=== PATIENT | female | born 1950 | race Caucasian/White ===

== ENCOUNTER 2017-08-16 04:09 | Observation (INO) | payer OTHER, BC ==
[~2017-08-16] VITALS: Ht 162.6 cm; Wt 73.5 kg
[~2017-08-16 04:09] MED LIST: CELEXA20 MG PO; COZAAR100 MG PO; CRESTOR10 MG PO; WELLBUTRIN XL150 MG PO; XANAX0.25 MG PO
[2017-08-16 04:37] LABS: ALBUMIN 4.1 g/dL (3.2-4.8); CHLORIDE 104 mEq/L (99-109); POTASSIUM 3.8 mEq/L (3.7-5.4); SODIUM 139 mEq/L (136-147)
[2017-08-16 04:39] LABS: GLUCOSE 119 mg/dL (70-99); TOTAL PROTEIN 7.1 g/dL (6.4-8.3)
[2017-08-16 04:40] LABS: HEMATOCRIT 39.3 % (36.0-46.0); HEMOGLOBIN 13.6 G/DL (11.9-15.5); MCHC 34.6 G/DL (30.0-36.0); MCV 89.5 FL (83-99); PLATELET COUNT 341 K/uL (156-360); RBC DIS.WIDTH-CV 13.2 % (11.8-14.6); RBC DIS.WIDTH-SD 43.7 % (39-53); RED BLOOD COUNT 4.39 M/uL (3.80-5.20)
[2017-08-16 04:41] LABS: TOTAL BILIRUBIN 0.4 mg/dL (0.0-1.0)
[2017-08-16 04:43] LABS: ALKALINE PHOSPHATASE 82 IU/L (3-129); CREATININE 0.9 mg/dL (0.6-1.3); GFR ESTIMATE (CALCULATED) > 59 mL/min/
[2017-08-16 04:44] LABS: UREA NITROGEN (BUN) 20 mg/dL (9-23)
[2017-08-16 04:45] LABS: AST (GOT) 12 IU/L (2-34)
[2017-08-16 04:46] LABS: ALT (GPT) 13 IU/L (3-49); LIPASE 31 U/L (1.0-51.0)
[2017-08-16 04:49] LABS: TROP-I INTERPRETATION NEGATIVE; TROPONIN-I < 0.01 ng/mL (0.0-0.30)
[2017-08-16 08:26] VITALS: BP 139/72
[2017-08-16 08:31] LABS: HDL CHOLESTEROL 46 MG/DL (Desirable>=50); LDL CHOLESTEROL 207 mg/dL (Desirable<100); NON-HDL CHOLESTEROL 250 mg/dL (Desirable<160); TOTAL CHOLESTEROL 296 mg/dL (Desirable<200); TRIGLYCERIDES 213 MG/DL (Normal: <150)
[2017-08-16 10:25] LABS: TROP-I INTERPRETATION NEGATIVE; TROPONIN-I < 0.01 ng/mL (0.0-0.30)
[2017-08-16] MEDS ORDERED: VENLAFAXINE HC150 M1 PO (11:36)
[2017-08-16] MEDS ORDERED: DIAZEPAM10 MG PO (11:36)
[2017-08-16] MEDS ORDERED: ESOMEPRAZOLE MA40 MG PO (11:37)
[2017-08-16 11:44] VITALS: BP 112/65
[2017-08-16 15:52] VITALS: BP 98/55
[2017-08-16 16:43] LABS: TROP-I INTERPRETATION NEGATIVE; TROPONIN-I < 0.01 ng/mL (0.0-0.30)
[2017-08-16 20:45] VITALS: BP 111/66
[2017-08-16 23:27] VITALS: BP 123/77
[2017-08-17 04:18] VITALS: BP 120/73
[2017-08-17 05:46] LABS: HEMATOCRIT 38.8 % (36.0-46.0); HEMOGLOBIN 12.7 G/DL (11.9-15.5); MCH 29.8 PG (29.0-34.0); MCHC 32.7 G/DL (30.0-36.0); MCV 91.1 FL (83-99); PLATELET COUNT 335 K/uL (156-360); RBC DIS.WIDTH-CV 13.5 % (11.8-14.6); RBC DIS.WIDTH-SD 45.5 % (39-53); RED BLOOD COUNT 4.26 M/uL (3.80-5.20); WHITE BLOOD COUNT 5.8 K/uL (4.1-10.2)
[2017-08-17 06:19] LABS: ALBUMIN 3.9 G/DL (3.2-4.8); ALKALINE PHOSPHATASE 68 IU/L (3-129); ALT (GPT) 9 IU/L (3-49); AST (GOT) 10 IU/L (2-34); CHLORIDE 103 MEQ/L (99-109); CREATININE 0.8 MG/DL (0.6-1.3); GFR ESTIMATE (CALCULATED) > 59 mL/min/; GLUCOSE 104 mg/dL (70-99); POTASSIUM 4.1 MEQ/L (3.7-5.4); SODIUM 138 MEQ/L (136-147); TOTAL BILIRUBIN 0.3 MG/DL (0.0-1.0); TOTAL PROTEIN 6.2 G/DL (6.4-8.3); UREA NITROGEN (BUN) 26 mg/dL (9-23)
[2017-08-17 07:22] VITALS: BP 118/81
[2017-08-17 11:34] VITALS: BP 106/71
[2017-08-17] MEDS ORDERED: ATORVASTATIN CA40 MG PO (11:47)
[2017-08-17] MEDS ORDERED: NITROSTAT0.4 MG SL (11:47)
== END 2017-08-17 13:17 | disposition home or self-care (01) ==
LOC: EME → EDBD 04:09 → EDOF 07:33 → ENRESERV 07:34 → EDOF 07:36 → ENRESERV 07:50 → 5WEST 08:22
PROVIDERS: Student in an Organized Health Care Education/Training Program
DX: R07.89 Other chest pain (principal); R94.31 Abnormal electrocardiogram [ECG] [EKG]; I10 Essential (primary) hypertension; E78.5 Hyperlipidemia, unspecified; M54.9 Dorsalgia, unspecified; F41.9 Anxiety disorder, unspecified; Z82.5 Family history of asthma and other chronic lower respiratory diseases
CPT/HCPCS: 71046; 80053; 80061; 83690; 84484; 85027; 93005; 99281; 99285; G0378; J1650